=== PATIENT | male | born 1935 | race Caucasian/White ===

== ENCOUNTER 2017-05-20 21:55 | Emergency (ER) | payer MEDICARE, OTHER ==
[2017-05-20 22:29] LABS: CHLORIDE,CL 103 mmol/L (101-111); SODIUM,NA 138 mmol/L (135-145)
[2017-05-20] MEDS ORDERED: Iopamidol 612 MG/ML 100 ML Bottle IVPUSH ONE (22:46)
[2017-05-20] MEDS ORDERED: Morphine 2 MG/ML Syringe IVPUSH ONE (23:20)
[2017-05-20] MEDS ORDERED: Ondansetron 4 MG/2 ML SDV IV ONE (23:22)
--- NOTE | 2017-05-21 00:05 | EDM.PDOC ---
ED HPI GENERAL MEDICAL PROBLEM - General Chief Complaint: Trauma Stated Complaint: AMBULANCE Time Seen by Provider: 05/20/17 21:55 Source of Information: Reports: Patient, EMS, Family History Limitations: Reports: No Limitations (Patient awake answers appropriately, notes normal for state with hx of dementia ) - History of Present Illness INITIAL COMMENTS - FREE TEXT/NARRATIVE: Arrival via [facility] [id number] on long vac splint and in c-collar. Patient reported to have been getting off horse on stepping on to stool, as getting off , stool started to slide, Horse sppoked and bucked patient, landed on ground. reports being "out approximately 1.5 minutes. Medical Hx with multiple myeloma diabetes on Metformin and mild dementia. Baseline aware of dates, confusion "normal, worse under stress. Unable to watch TV and "track". On arrival paient alert and talking. Primary c/o is pain to left shoulder and right wrist. Denies neck or back pain. EMS abrasion to left lateral occiput with bleeding controlled. Has been moving all extremities. Large bruise to left inner calf. Onset: Today Duration: Hour(s): Location: Reports: Head, Upper Extremity, Left, Upper Extremity, Right Quality: Reports: Throbbing Severity: Moderate Worsens with: Reports: Movement Context: Reports: Trauma Associated Symptoms: Denies: Diaphoresis, Nausea/Vomiting, Seizure, Shortness of Breath Review of Systems - Review of Systems Review Of Systems: See Below Constitutional: Reports: No Symptoms Eyes: Reports: No Symptoms Ears: Reports: No Symptoms Nose: Reports: No Symptoms Mouth/Throat: Reports: No Symptoms Respiratory: Reports: No Symptoms Cardiovascular: Reports: No Symptoms GI/Abdominal: Reports: No Symptoms Musculoskeletal: Reports: Shoulder Pain (left), Arm Pain (right wrist), Hand Pain (right). Denies: Neck Pain, Back Pain, Leg Pain Skin: Reports: No Symptoms Neurological: Reports: No Symptoms, Tremors (chronic) Psychiatric: Reports: No Symptoms ED EXAM, GENERAL - Physical Exam Exam: See Below (pain left shoulder) Exam Limited By: No Limitations General Appearance: Alert, Moderate Distress Eye Exam: Bilateral Eye: EOMI, PERRL (3) Ears: Normal Canal, Normal TMs. No: Normal External Exam (acratches to right palsterior aurical dried blood. Canal clear. ) Nose: Normal Inspection Throat/Mouth: Normal Inspection Head: Other (occipital hematoma and abrasion). No: Atraumatic, Facial Swelling , Facial Tenderness Neck: Other (c colalr on) Respiratory/Chest: No Respiratory Distress, Lungs Clear, Normal Breath Sounds, Other (no chest tenderness with palpation or pressure, no facial grimace) Cardiovascular: Normal Peripheral Pulses, Regular Rate, Rhythm, Other (monitor NSR) GI/Abdominal: Normal Bowel Sounds, Soft, Non-Tender, No Distention Back Exam: No: Paraspinal Tenderness, Vertebral Tenderness Extremities: Arm Pain (left shoulder), Leg Pain (left lower medical hematoma), Other (no pain or instability of pelvis with palpation, moving lower extremities. peripheral pulses present strong) Neurological: Alert, Oriented, Normal Cognition, Memory Loss Recent Events ( baseline), Other (oriented to person palce and time. ). No: Normal Gait Psychiatric: Normal Affect Skin Exam: Warm, Dry, Normal Color, Ecchymosis (left calf, right hand). No: Intact (abrasion right distal MCP, ) Course - Orders/Labs/Meds Labs: Laboratory Tests 05/20/17 05/20/17 05/20/17 Range/Units 22:00 22:00 22:00 WBC 4.3 L (5.0-10.0) 10^3/uL RBC 2.92 L (4.6-6.2) 10^6/uL Hgb 9.7 L (14.0-18.0) g/dL Hct 29.9 L (40.0-54.0) % MCV 102.4 H (80-100) fL MCH 33.2 (27.0-34.0) pg MCHC 32.4 L (33.0-35.0) g/dL Plt Count 142 L (150-450) 10^3/uL Neut % (Auto) 80.2 H (42.2-75.2) % Lymph % (Auto) 11.8 L (20.5-50.1) % [place] % (Auto) 7.1 (2-8) % Eos % (Auto) 0.9 L (1.0-3.0) % Baso % (Auto) 0.0 (0.0-1.0) % PT 10.4 (9.0-12.0) SEC INR 1.0 (0.9-1.2) Sodium 138 (135-145) mmol/L Potassium 4.2 (3.6-5.0) mmol/L Chloride 103 (101-111) mmol/L Carbon Dioxide 24.0 (21.0-31.0) mmol/L Anion Gap 15.2 BUN 21 H (7-18) mg/dL Creatinine 1.1 (0.6-1.3) mg/dL Est Cr Clr Drug Dosing TNP Estimated GFR (MDRD) > 60 BUN/Creatinine Ratio 19.09 Glucose 123 H (74-105) mg/dL Calcium 8.8 (8.4-10.2) mg/dl Total Bilirubin 0.5 (0.2-1.0) mg/dL AST 42 (10-42) IU/L ALT 34 (10-60) IU/L Alkaline Phosphatase 57 (42-121) IU/L Troponin I < 0.02 (0.00-0.02) ng/ml Total Protein 6.4 L (6.7-8.2) g/dl Albumin 3.2 (3.2-5.5) g/dl Globulin 3.2 Albumin/Globulin Ratio 1.00 Amylase 48 (28-100) U/L Lipase 19 L (22-51) U/L Urine Color (YELLOW) Urine Appearance (CLEAR) Urine pH (5.0-9.0) Ur Specific [place] (1.005-1.030) Urine Protein (NEGATIVE) Urine Glucose (UA) (NEGATIVE) Urine Ketones (NEGATIVE) Urine Occult Blood (NEGATIVE) Urine Nitrite (NEGATIVE) Urine Bilirubin (NEGATIVE) Urine Urobilinogen (0.2-1.0) mg/dL Ur Leukocyte Esterase (NEGATIVE) Urine RBC /HPF Urine WBC (0-5/HPF) /HPF Ur Epithelial Cells /HPF Urine Bacteria (0-FEW/HPF) /HPF 05/20/17 05/21/17 Range/Units 22:07 01:15 WBC (5.0-10.0) 10^3/uL RBC (4.6-6.2) 10^6/uL Hgb 8.9 L (14.0-18.0) g/dL Hct 27.8 L (40.0-54.0) % MCV (80-100) fL MCH (27.0-34.0) pg MCHC (33.0-35.0) g/dL Plt Count (150-450) 10^3/uL Neut % (Auto) (42.2-75.2) % Lymph % (Auto) (20.5-50.1) % [place] % (Auto) (2-8) % Eos % (Auto) (1.0-3.0) % Baso % (Auto) (0.0-1.0) % PT (9.0-12.0) SEC INR (0.9-1.2) Sodium (135-145) mmol/L Potassium (3.6-5.0) mmol/L Chloride (101-111) mmol/L Carbon Dioxide (21.0-31.0) mmol/L Anion Gap BUN (7-18) mg/dL Creatinine (0.6-1.3) mg/dL Est Cr Clr Drug Dosing Estimated GFR (MDRD) BUN/Creatinine Ratio Glucose (74-105) mg/dL Calcium (8.4-10.2) mg/dl Total Bilirubin (0.2-1.0) mg/dL AST (10-42) IU/L ALT (10-60) IU/L Alkaline Phosphatase (42-121) IU/L Troponin I (0.00-0.02) ng/ml Total Protein (6.7-8.2) g/dl Albumin (3.2-5.5) g/dl Globulin Albumin/Globulin Ratio Amylase (28-100) U/L Lipase (22-51) U/L Urine Color Yellow (YELLOW) Urine Appearance Clear (CLEAR) Urine pH 5.0 (5.0-9.0) Ur Specific [place] 1.020 (1.005-1.030) Urine Protein 30 H (NEGATIVE) Urine Glucose (UA) Negative (NEGATIVE) Urine Ketones Negative (NEGATIVE) Urine Occult Blood Trace-lysed H (NEGATIVE) Urine Nitrite Negative (NEGATIVE) Urine Bilirubin Negative (NEGATIVE) Urine Urobilinogen 0.2 (0.2-1.0) mg/dL Ur Leukocyte Esterase Negative (NEGATIVE) Urine RBC 0-5 /HPF Urine WBC 0-5 (0-5/HPF) /HPF Ur Epithelial Cells Few /HPF Urine Bacteria Few (0-FEW/HPF) /HPF Meds: Medications Discontinued Medications Generic Name Dose Route Start Last Admin Trade Name Freq PRN Reason Stop Dose Admin Iopamidol 100 ml 05/20/17 22:46 05/20/17 23:25 Isovue-300 (61%) IVPUSH 05/20/17 22:47 100 ml ONETIME ONE Administration Morphine Sulfate 2 mg 05/20/17 23:20 05/20/17 23:45 Morphine IVPUSH 05/20/17 23:21 2 mg ONETIME ONE Administration Morphine Sulfate 2 mg 05/21/17 00:54 05/21/17 00:57 Morphine IVPUSH 05/21/17 00:55 2 mg ONETIME ONE Administration Ondansetron HCl 4 mg 05/20/17 23:22 05/20/17 23:45 Zofran IV 05/20/17 23:23 4 mg ONETIME ONE Administration - Radiology Interpretation Free Text/Narrative:: CT head hematoma left parietal. CT cervical negative CXR scapular spine fracture XR pelvis bilateral femoral neck fractures and non displaced fx greater trochanter CHEST Abdomen and pelvis, Multiple rib fractures left anterior 4-9 posterior left 2-4 and left 8-10 , right fx anterior 6-[address] negative for acute process - Re-Assessments/Exams Free Text/Narrative Re-Assessment/Exam: 2205 voids without difficulty 2330C cpine cleared via CT results 05/21/17 00:[address] Gillespie regarding patient'. Await CT chest abdomen results . [facility] contacted regarding delayed results of studies. [address] TC consult regarding xray findings, multiple rib fractures Dr. Gillespie accepting of patient. Accepting of patient for further eval and management. Consent for transfer signed by . Summary of injuries provided. Discussed risk of flight transfer with multiple rib fractures. Patient my have Morphine in small increments enroute. Patient HR stable. Slight decrease in BP prior to transport responded with 250 cc bolus. GSC 15 on transfer. Awake and talking with . Tx via [facility]. left shoulder splint with sheet sling . Right wrist splint on. Dressing to posterior occiptal abrasion. Transfer delay related to delay in radiology studies and reports Departure - Departure Time of Disposition: 01:25 Disposition: DC/Tfer to Acute Hospital 02 Condition: Undetermined Clinical Impression: Trauma Fall from horse Qualifiers: Encounter type: initial encounter Qualified Code(s): V80.010A - Animal-rider injured by fall from or being thrown from horse in noncollision accident, initial encounter Multiple fractures of ribs of both sides Qualifiers: Encounter type: initial encounter Fracture type: closed Qualified Code(s): S22.43XA - Multiple fractures of ribs, bilateral, initial encounter for closed fracture Bilateral hip fractures Qualifiers: Encounter type: initial encounter Fracture type: closed Qualified Code(s): S72.001A - Fracture of unspecified part of neck of right femur, initial encounter for closed fracture Fracture, scapula closed Qualifiers: Encounter type: initial encounter Scapula location: unspecified part of scapula Laterality: left Qualified Code(s): S42.102A - Fracture of unspecified part of scapula, left shoulder, initial encounter for closed fracture Scalp abrasion Qualifiers: Encounter type: initial encounter Qualified Code(s): S00.01XA - Abrasion of scalp, initial encounter - Discharge Information Referrals: PCP,Not In Area [Primary Care Provider] - Forms: ED Department Discharge
[2017-05-21] MEDS ORDERED: Morphine 2 MG/ML Syringe IVPUSH ONE (00:54)
--- NOTE | 2017-05-29 10:44 | EKG ---
05/20/2017- MARCELINO DONAHUE - This is a standard 12-lead EKG showing normal sinus rhythm with ventricular rate 81 beats per minute, normal MA interval, QRS duration, and normal QTC. No significant ST-T changes. [facility] /[id number]
== END 2017-05-21 01:25 ==
LOC: DL.ED 21:55
DX: S22.43XA Multiple fractures of ribs, bilateral, initial encounter for closed fracture (principal); S72.001A Fracture of unspecified part of neck of right femur, initial encounter for closed fracture; S72.002A Fracture of unspecified part of neck of left femur, initial encounter for closed fracture; S42.102A Fracture of unspecified part of scapula, left shoulder, initial encounter for closed fracture; S00.01XA Abrasion of scalp, initial encounter; S80.12XA Contusion of left lower leg, initial encounter; S60.221A Contusion of right hand, initial encounter; V80.010A Animal-rider injured by fall from or being thrown from horse in noncollision accident, initial encounter; S00.03XA Contusion of scalp, initial encounter
CPT/HCPCS: 36415; 70450; 71010; 71260; 72125; 72128; 72131; 72170; 73030; 73120; 73590; 74177; 80053; 81001; 82150; 83690; 84484; 85014; 85018; 85025; 85610; 93005; 93010; 96374; 96375; 96376; 99284; 99285; J2270; J2405; Q9967